=== PATIENT | female | born 1990 | race Two or more races ===

== ENCOUNTER 2018-02-02 12:37 | Emergency (ER) | payer SELFPAY ==
[~2018-02-02] VITALS: Ht 160 cm; Wt 53.0 kg
[2018-02-02 12:42] VITALS: BP 128/83
== END 2018-02-02 13:11 | disposition left against medical advice (07) ==
LOC: ER 12:59
DX: M79.602 Pain in left arm (principal); R07.9 Chest pain, unspecified; R06.02 Shortness of breath
CPT/HCPCS: 93005; 99283; 99285